=== PATIENT | female | born 1990 | race Caucasian/White ===

== ENCOUNTER 2019-03-24 22:13 | Emergency (ER) | payer SELFPAY ==
--- OUTSIDE RECORDS SUMMARY | 2019-03-24 22:15 | XMS REPORT ---
:1990 [facility] Address [address] [place] [address] Dr. Monteiro [address] [place] [id number] Care Team Providers Name Role Phone Unavailable Unavailable Unavailable Problems This patient has no known problems. Allergies, Adverse Reactions, Alerts This patient has no known allergies or adverse reactions. Medications This patient has no known medications.
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
[2019-03-24] MEDS ORDERED: KETOROLAC 30 MG/ML INJ ONE (23:19)
[2019-03-24] MEDS ORDERED: CYCLOBENZAPRINE 10 MG TAB ONE (23:19)
== END 2019-03-24 23:35 | disposition home or self-care (01) ==
LOC: ER 22:13
DX: S30.1XXA Contusion of abdominal wall, initial encounter (principal); W22.8XXA Striking against or struck by other objects, initial encounter; M54.5 Low back pain; F17.210 Nicotine dependence, cigarettes, uncomplicated
CPT/HCPCS: 96372; 99283